=== PATIENT | female | born 1995 | race African-American/Black ===

== ENCOUNTER 2017-05-22 09:34 | Emergency (ER) | payer MEDICAID, OTHER ==
[~2017-05-22] VITALS: Ht 165.1 cm; Wt 60.0 kg
[~2017-05-22 09:34] MED LIST: CHLO.12%30 SWISH-SPIT; PENI500T PO
[2017-05-22 09:37] VITALS: BP 113/70; PULSE 83; RESP 14; TEMP 97.6; O2SAT 99
[2017-05-22] MEDS ORDERED: SODIUM CHLOR 0.9% 1000 ML INJ 1,000 ML IV SCH (10:01)
[2017-05-22] MEDS ORDERED: SODIUM CHLORIDE 0.9% FLUSH 10 ML FLUSH IV FLUSH PRN (10:15)
[2017-05-22] MEDS ORDERED: ONDANSETRON HCL 4 MG/2 ML VIAL IVP ONE (10:15)
[2017-05-22] MEDS ORDERED: MORPHINE SULFATE 4 MG/ML INJ IV PUSH ONE (10:15)
[2017-05-22] MEDS ORDERED: KETOROLAC TROMETHAMINE 30 MG/ML (IVP) VIAL IVP ONE (10:15)
[2017-05-22] MEDS ORDERED: MORPHINE SULFATE 2 MG/ML INJ IV PUSH ONE (10:30)
--- NOTE | 2017-05-22 10:59 | PD ---
HPI Chief Complaint: Abdominal Pain Time Seen by Provider: 10:01 Travel History International Travel<30 days: No Contact w/Intl Traveler<30days: No Traveled to known affect area: No History of Present Illness HPI This is a 21-year-old female who presents to the emergency department with right lower quadrant abdominal pain that started overnight, keeping her from sleeping, sharp and stabbing, nonradiating, associated with some nausea. She denies any fevers, chills or vomiting. She has had kidney stones in the past but they usually hurt her in her back. She doesn't know if she could be . [facility] Past Medical History Medical History: Denies Significant Hx Diminished Hearing: No Kidney Stones: Yes Immunizations Current: Yes Tetanus Vaccination: < 5 Years Influenza Vaccination: No ?: Unknown LMP: 04/28/17 : 3 Para: 3 Past Surgical History Section: No Genitourinary Surgery: Yes (STENT AND THEN REMOVAL; R/T KIDNEY STONES) Social History Alcohol Use: No Tobacco Use: Yes (3 cig/daily) Substance Use: Yes Allergies-Medications (Allergen,Severity, Reaction): Coded Allergies: No Known Allergies (Verified , 06/22/16) Reported Meds & Prescriptions Reported Meds & Active Scripts Active Pen Vk (Penicillin V Potassium) 500 Mg Tab 500 Mg PO TID 10 Days Peridex Oral Rinse (Chlorhexidine Gluconate) 0.12 % Marichuy 15 Ml SWISH-SPIT TID 10 Days Review of Systems Except as stated in HPI: all other systems reviewed are Neg Physical Exam Narrative GENERAL:Well appearing, no acute distress SKIN: Focused skin assessment warm and dry. HEAD: Atraumatic. Normocephalic. EYES: Pupils equal and round. No injection or drainage. ENT: Moist mucous membranes NECK: Trachea midline. CARDIOVASCULAR: Regular rate and rhythm. No murmur appreciated. RESPIRATORY: Clear to auscultation. Breath sounds equal bilaterally. GASTROINTESTINAL: Abdomen soft, tender to palpation in the right lower quadrant with no rebound or guarding. MUSCULOSKELETAL: No obvious deformities. NEUROLOGICAL: Awake and alert. No obvious cranial nerve deficits. Moving all extremities. PSYCHIATRIC: Appropriate mood and affect; insight and judgment normal. Data Data Last Documented VS Vital Signs Date Time Temp Pulse Resp B/P (MAP) Pulse Ox O2 Delivery O2 Flow Rate FiO2 05/22/17 11:39 64 16 106/63 (77) 99 Room Air 05/22/17 09:37 97.6 Orders Orders Complete Blood Count With Diff (05/22/17 10:01) Comprehensive Metabolic Panel (05/22/17 10:01) Urinalysis - C+S If Indicated (05/22/17 10:01) Ct Abd/Pel W/O Iv Contrast (05/22/17 10:01) Iv Access Insert/Monitor (05/22/17 10:01) Ecg Monitoring (05/22/17 10:01) Oximetry (05/22/17 10:01) Morphine Inj (Morphine Inj) (05/22/17 10:15) Ondansetron Inj (Zofran Inj) (05/22/17 10:15) Sodium Chlor 0.9% 1000 Ml Inj (Ns 1000 M (05/22/17 10:01) Sodium Chloride 0.9% Flush (Ns Flush) (05/22/17 10:15) Ketorolac Inj (Toradol Inj) (05/22/17 10:15) Ed Urine Pregnancytest Poc (05/22/17 10:01) Morphine Inj (Morphine Inj) (05/22/17 10:30) Wet Prep Profile (05/22/17 11:51) Gc And Chlamydia Pcr (05/22/17 11:51) Labs Laboratory Tests Test 05/22/17 10:15 05/22/17 10:20 Urine Color LIGHT-YELLOW Urine Turbidity HAZY Urine pH 7.0 Urine Specific [place] 1.019 Urine Protein NEG mg/dL Urine Glucose (UA) NEG mg/dL Urine Ketones NEG mg/dL Urine Occult Blood NEG Urine Nitrite NEG Urine Bilirubin NEG Urine Urobilinogen LESS THAN 2.0 MG/DL Urine Leukocyte Esterase NEG Urine WBC 4 /hpf Urine Squamous Epithelial Cells 4 /hpf Urine Amorphous Sediment RARE Urine Bacteria FEW /hpf Urine Mucus FEW /lpf Microscopic Urinalysis Comment CULT NOT INDICATED White Blood Count 4.2 TH/MM3 Red Blood Count 3.91 MIL/MM3 Hemoglobin 12.2 GM/DL Hematocrit 36.7 % Mean Corpuscular Volume 93.8 FL Mean Corpuscular Hemoglobin 31.2 PG Mean Corpuscular Hemoglobin Concent 33.3 % Red Cell Distribution Width 14.1 % Platelet Count 230 TH/MM3 Mean Platelet Volume 8.1 FL Neutrophils (%) (Auto) 48.6 % Lymphocytes (%) (Auto) 41.5 % Monocytes (%) (Auto) 8.7 % Eosinophils (%) (Auto) 0.7 % Basophils (%) (Auto) 0.5 % Neutrophils # (Auto) 2.0 TH/MM3 Lymphocytes # (Auto) 1.7 TH/MM3 Monocytes # (Auto) 0.4 TH/MM3 Eosinophils # (Auto) 0.0 TH/MM3 Basophils # (Auto) 0.0 TH/MM3 CBC Comment DIFF FINAL Differential Comment Blood Urea Nitrogen 12 MG/DL Creatinine 0.78 MG/DL Random Glucose 88 MG/DL Total Protein 8.1 GM/DL Albumin 4.2 GM/DL Calcium Level 9.5 MG/DL Alkaline Phosphatase 84 U/L Aspartate Amino Transf (AST/SGOT) 15 U/L Alanine Aminotransferase (ALT/SGPT) 19 U/L Total Bilirubin 0.2 MG/DL Sodium Level 137 MEQ/L Potassium Level 4.2 MEQ/L Chloride Level 104 MEQ/L Carbon Dioxide Level 26.3 MEQ/L Anion Gap 7 MEQ/L Estimat Glomerular Filtration Rate 112 ML/MIN MDM Medical Decision Making Medical Screen Exam Complete: Yes Emergency Medical Condition: Yes Interpretation(s) afebrile, no tachycardia, normotensive no leukocytosis electrolytes within normal limits urinalysis: no infection Differential Diagnosis Nephrolithiasis, tubo-ovarian abscess, ovarian torsion, ovarian cyst, PID Narrative Course This is a 21-year-old female who presents to the emergency department with right lower quadrant abdominal pain and vaginal discharge and a foul odor. His CT was obtained given the patient's history kidney stones which was normal. Labs are obtained which were reassuring. Pelvic exam demonstrates PID. I think patient is appropriate for outpatient antibiotic therapy. Diagnosis Primary Impression: Pelvic inflammatory disease Patient Instructions: General Instructions Additional Instructions: If you develop fever, chills, severe abdominal pain, persistent vomiting or inability to eat return to the emergency department. Your pelvic exam today did not include a Pap smear. It is important to followup with a kitchen worker on a yearly basis to be tested for cervical cancer as we do not do that from the emergency department. If there is a concern that you have sexually transmitted disease, your partner should be tested. You should followup with your kitchen worker or with the health department to get tested for other sexually transmitted diseases like HIV and syphilis, as we do not test for these in the emergency department Med/Other Pt SpecificInfo: Prescription(s) given Scripts Doxycycline Hyclate (Doxycycline Hyclate) 100 Mg Cap 100 MG PO BID for Infection, #28 CAP 0 Refills Prov: Kathy Ramirez MD 05/22/17 Disposition: 01 DISCHARGE HOME Condition: Stable Kathy Ramirez MD May 22, 2017 10:59
[2017-05-22 11:30] LABS: BASOPHIL % 0.5 % (0.0-2.0); EOSINOPHIL % 0.7 % (0.0-4.0); HEMATOCRIT 36.7 % (35.0-46.0); HEMO FLAGS DIFF FINAL; LYMPH % 41.5 % (9.0-44.0); LYMPHOCYTE # 1.7 TH/MM3 (1.0-4.8); MEAN CELL VOLUME 93.8 FL (80.0-100.0); MEAN CORPUSCULAR HEMOGLOBIN 31.2 PG (27.0-34.0); MEAN CORPUSCULAR HGB CONC 33.3 % (32.0-36.0); MONO % 8.7 % (0.0-8.0); NEUT % 48.6 % (16.0-70.0); PLATELET COUNT 230 TH/MM3 (150-450); RED BLOOD COUNT 3.91 MIL/MM3 (4.00-5.30); RED CELL DISTRIBUTION WIDTH 14.1 % (11.6-17.2); WHITE BLOOD COUNT 4.2 TH/MM3 (4.0-11.0)
[2017-05-22 11:38] LABS: BACTERIA, URINE FEW /hpf; BLOOD, URINE NEG (NEG); COMMENT (UR) CULT NOT INDICATED; CULTURE IF INDICATED CULT NOT INDICATED; GLUCOSE,URINE NEG (NEG); KETONE, URINE NEG (NEG); MUCUS URINE FEW /lpf (OCC); NITRITE,URINE NEG (NEG); SQUAMOUS EPITHELIAL CELL URINE 4 /hpf (0-5); URINE COLOR LIGHT-YELLOW (YELLW/STRAW)
[2017-05-22 11:39] VITALS: BP 106/63; PULSE 64; RESP 16; O2SAT 99
--- NOTE | 2017-05-22 11:40 | RADRPT ---
EXAM DATE/TIME: 05/22/2017 11:18 [facility] COMPARISON: No previous studies available for comparison. INDICATIONS : Right flank pain, lower abdominal pain. ORAL CONTRAST: No oral contrast ingested. RADIATION DOSE: 6.12 CTDIvol (mGy) MEDICAL HISTORY : Renal calculi. SURGICAL HISTORY : Renal stent. ENCOUNTER: Initial ACUITY: 1 day PAIN SCALE: 6/10 LOCATION: Right flank TECHNIQUE: Volumetric scanning of the abdomen and pelvis was performed. Using automated exposure control and ad justment of the mA and/or kV according to patient size, radiation dose was kept as low as reasonably achievable to obtain optimal diagnostic quality images. DICOM format image data is available electro nically for review and comparison. The lack of IV contrast limits the diagnosis for certain organ pa thology. FINDINGS: LOWER LUNGS: The visualized lower lungs are clear. LIVER: Homogeneous density without lesion. There is no dilation of the biliary tree. No calcified gallston es. SPLEEN: Normal size without lesion. PANCREAS: Within normal limits. KIDNEYS: Normal in size and shape. There is no mass or hydronephrosis. There is a 3 mm stone mid to lower cameron e right kidney not causing obstruction. There is a 2 mm stone in the lower pole and midpole right kid lissa not causing obstruction. There is a 3 mm stone in the upper pole and lower pole of the left kidne y not causing obstruction. The ureters are nondilated. ADRENAL GLANDS: Within normal limits. VASCULAR: There is no aortic aneurysm. BOWEL/MESENTERY: The stomach, small bowel, and colon demonstrate no acute abnormality. There is no free intraperitone al air or fluid. ABDOMINAL WALL: Within normal limits. RETROPERITONEUM: There is no lymphadenopathy. BLADDER: No wall thickening or mass. No stones. REPRODUCTIVE: Within normal limits. INGUINAL: There is no lymphadenopathy or hernia. MUSCULOSKELETAL: Within normal limits for patient age. CONCLUSION: 1. No evidence of hydronephrosis. 2. There is several tiny subcentimeter bilateral renal calculi not causing obstruction. Lacho Gonzalez MD on May 22, 2017 at 11:35 Board Certified Radiologist. This report was verified electronically.
[2017-05-22 11:45] LABS: ANION GAP 7 MEQ/L (5-15); AST (GOT) 15 U/L (15-37); BICARBONATE 26.3 MEQ/L (21.0-32.0); BLOOD UREA NITROGEN 12 MG/DL (7-18); CHLORIDE 104 MEQ/L (98-107); GLOMERULAR FILTRATION RATE 112 ML/MIN (>89); POTASSIUM 4.2 MEQ/L (3.5-5.1); SODIUM (NA) 137 MEQ/L (136-145)
[2017-05-22 11:47] LABS: ALT (GPT) 19 U/L (10-53)
[2017-05-22 11:49] LABS: ALKALINE PHOSPHATASE 84 U/L (45-117); TOTAL BILIRUBIN ADULT 0.2 MG/DL (0.2-1.0)
[2017-05-22] MEDS ORDERED: DOXY100C PO (12:06)
[2017-05-22] MEDS ORDERED: LIDOCAINE HCL 1% 50 ML VIAL IM ONE (12:15)
[2017-05-22] MEDS ORDERED: metroNIDAZOLE 500 MG TAB PO ONE (12:15)
[2017-05-22] MEDS ORDERED: cefTRIAXone 250 MG VIAL IM ONE (12:15)
[2017-05-22 14:26] LABS: CHLAMYDIA PCR NOT DETECTED (NOT DETECT); NEISSERIA PCR NOT DETECTED (NOT DETECT)
== END 2017-05-22 12:47 | disposition home or self-care (01) ==
LOC: NEPD 09:34
DX: N73.9 Female pelvic inflammatory disease, unspecified (principal); R10.31 Right lower quadrant pain; R11.0 Nausea; Z72.0 Tobacco use
CPT/HCPCS: 74176; 80053; 81001; 84703; 85025; 87210; 87491; 87591; 96361; 96372; 96374; 96375; 99285; J0696; J1885; J2270; J2405; J7030

== ENCOUNTER 2017-05-30 09:20 | Emergency (ER) | payer OTHER ==
[~2017-05-30] VITALS: Ht 165.1 cm; Wt 55.0 kg
[~2017-05-30 09:20] MED LIST changes: +DOXY100C PO
[2017-05-30] MEDS ORDERED: SODIUM CHLOR 0.9% 1000 ML INJ 1,000 ML IV SCH (09:31)
[2017-05-30 09:33] VITALS: BP 101/55; PULSE 65; RESP 16; TEMP 98.9; O2SAT 99
[2017-05-30 09:37] VITALS: O2SAT 99
[2017-05-30] MEDS ORDERED: SODIUM CHLORIDE 0.9% FLUSH 10 ML FLUSH IV FLUSH PRN (09:45)
[2017-05-30] MEDS ORDERED: ONDANSETRON HCL 4 MG/2 ML VIAL IVP ONE (09:45)
[2017-05-30] MEDS ORDERED: KETOROLAC TROMETHAMINE 30 MG/ML (IVP) VIAL IVP ONE (09:45)
--- NOTE | 2017-05-30 09:46 | PD ---
HPI Chief Complaint: Abdominal Pain Time Seen by Provider: 09:29 Travel History International Travel<30 days: No Contact w/Intl Traveler<30days: No Traveled to known affect area: No History of Present Illness HPI 21-year-old female complains of low abdominal pain and low back pain. Patient states that she started having nausea vomiting is morning. Patient states that she started having severe low back pain after and episode of vomiting this morning. Patient states that the back pain abdominal pain much better now. Patient denies any headache. Patient denies any chest pain or shortness of breath. Patient denies any dysuria or frequency. Patient denies any vaginal discharge or bleeding. Patient denies any fever chills. Patient was seen in emergency room a week ago for abdominal pain. Patient was treated for PID. Patient was given prescription for doxycycline. Subsequent lab results shows negative for chlamydia or GC PCR. Patient states that the abdominal pain resolved completely after the visit. Patient states that she has history kidney stone in the past. PFSH Past Medical History Diminished Hearing: No Kidney Stones: Yes Immunizations Current: Yes ?: Not : 3 Para: 3 Past Surgical History Section: No Genitourinary Surgery: Yes (STENT AND THEN REMOVAL; R/T KIDNEY STONES) Social History Alcohol Use: No Tobacco Use: Yes (3 cig/daily) Substance Use: Yes Allergies-Medications (Allergen,Severity, Reaction): Coded Allergies: No Known Allergies (Verified , 05/30/17) Reported Meds & Prescriptions Reported Meds & Active Scripts Active Review of Systems General / Constitutional: No: Fever Eyes: No: Visual changes HENT: No: Headaches Cardiovascular: No: Chest Pain or Discomfort Respiratory: No: Shortness of Breath Gastrointestinal: Positive: Nausea, Vomiting, Abdominal Pain Genitourinary: No: Dysuria Musculoskeletal: No: Pain Skin: No Rash Neurologic: No: Weakness Psychiatric: No: Depression Endocrine: No: Polydipsia Hematologic/Lymphatic: No: Easy Bruising Physical Exam Narrative GENERAL: Well-nourished, well-developed patient. SKIN: Focused skin assessment warm/dry. HEAD: Normocephalic. EYES: No scleral icterus. No injection or drainage. NECK: Supple, trachea midline. No JVD or lymphadenopathy. CARDIOVASCULAR: Regular rate and rhythm without murmurs, gallops, or rubs. RESPIRATORY: Breath sounds equal bilaterally. No accessory muscle use. GASTROINTESTINAL: Abdomen soft, nondistended. Mild diffuse tenderness over the lower abdomen. No rebound tenderness. No mass. MUSCULOSKELETAL: No cyanosis, or edema. BACK: Mild tenderness on the lumbar area, without obvious deformity. No CVA tenderness. Neurologic exam normal. Data Data Last Documented VS Vital Signs Date Time Temp Pulse Resp B/P (MAP) Pulse Ox O2 Delivery O2 Flow Rate FiO2 05/30/17 09:37 99 05/30/17 09:33 98.9 65 16 101/55 (70) Orders Orders Complete Blood Count With Diff (05/30/17 09:31) Comprehensive Metabolic Panel (05/30/17 09:31) Lipase (05/30/17 09:31) Urinalysis - C+S If Indicated (05/30/17:31) Ct Abd/Pel W/O Iv Contrast (05/30/17 09:31) Iv Access Insert/Monitor (05/30/17 09:31) Ecg Monitoring (05/30/17:31) Oximetry (05/30/17:31) Ondansetron Inj (Zofran Inj) (05/30/17 09:45) Sodium Chlor 0.9% 1000 Ml Inj (Ns 1000 M (05/30/17 09:31) Sodium Chloride 0.9% Flush (Ns Flush) (05/30/17 09:45) Ketorolac Inj (Toradol Inj) (05/30/17 09:45) Ed Urine Pregnancytest Poc (05/30/17 09:31) Labs Laboratory Tests Test 05/30/17 09:40 White Blood Count 4.8 TH/MM3 Red Blood Count 3.70 MIL/MM3 Hemoglobin 11.6 GM/DL Hematocrit 35.3 % Mean Corpuscular Volume 95.3 FL Mean Corpuscular Hemoglobin 31.4 PG Mean Corpuscular Hemoglobin Concent 32.9 % Red Cell Distribution Width 14.4 % Platelet Count 186 TH/MM3 Mean Platelet Volume 8.0 FL Neutrophils (%) (Auto) 42.2 % Lymphocytes (%) (Auto) 47.7 % Monocytes (%) (Auto) 7.7 % Eosinophils (%) (Auto) 2.1 % Basophils (%) (Auto) 0.3 % Neutrophils # (Auto) 2.0 TH/MM3 Lymphocytes # (Auto) 2.3 TH/MM3 Monocytes # (Auto) 0.4 TH/MM3 Eosinophils # (Auto) 0.1 TH/MM3 Basophils # (Auto) 0.0 TH/MM3 CBC Comment DIFF FINAL Differential Comment Urine Color YELLOW Urine Turbidity HAZY Urine pH 6.5 Urine Specific [place] 1.022 Urine Protein TRACE mg/dL Urine Glucose (UA) NEG mg/dL Urine Ketones NEG mg/dL Urine Occult Blood MOD Urine Nitrite NEG Urine Bilirubin NEG Urine Urobilinogen LESS THAN 2.0 MG/DL Urine Leukocyte Esterase TRACE Urine RBC 69 /hpf Urine WBC 8 /hpf Urine Squamous Epithelial Cells 3 /hpf Urine Calcium Oxalate Crystals OCC /hpf Urine Mucus FEW /lpf Microscopic Urinalysis Comment CULT NOT INDICATED Blood Urea Nitrogen 10 MG/DL Creatinine 0.81 MG/DL Random Glucose 110 MG/DL Total Protein 7.2 GM/DL Albumin 3.6 GM/DL Calcium Level 9.0 MG/DL Alkaline Phosphatase 74 U/L Aspartate Amino Transf (AST/SGOT) 25 U/L Alanine Aminotransferase (ALT/SGPT) 22 U/L Total Bilirubin LESS THAN 0.1 MG/DL Sodium Level 136 MEQ/L Potassium Level 3.6 MEQ/L Chloride Level 107 MEQ/L Carbon Dioxide Level 21.1 MEQ/L Anion Gap 8 MEQ/L Estimat Glomerular Filtration Rate 107 ML/MIN Lipase 268 U/L MDM Medical Decision Making Medical Screen Exam Complete: Yes Emergency Medical Condition: Yes Medical Record Reviewed: Yes Interpretation(s) 10:29 AM. CBC within normal limit. CMP within normal limit. UA positive for WBC and RBC. 11:24 AM. Last Impressions Abdomen/Pelvis CT 05/30/17 0931 Signed Impressions: Service Date/Time: Tuesday, May 30, 2017 10:27 - CONCLUSION: Stable small bilateral renal stones. No evidence of hydronephrosis. No acute findings. Matt Vasquez MD Differential Diagnosis Differential diagnosis including gastroenteritis, gastritis, PUD, pancreatitis, cholecystitis, colitis, UTI, pyelonephritis, nephrolithiasis. Narrative Course 21-year-old female with low abdominal pain and low back pain and nausea vomiting. Normal saline solution 1 25 cc an hour. Toradol 30 mg IV. Zofran 4 mg IV. Diagnosis Primary Impression: Gastroenteritis Additional Impression: Lumbar strain Qualified Codes: S39.012A - Strain of muscle, fascia and tendon of lower back , initial encounter Patient Instructions: General Instructions Additional Instructions: Take medications as directed. Follow-up with personal physician. Return if worse. Med/Other Pt SpecificInfo: Prescription(s) given Scripts Methocarbamol (Robaxin) 750 Mg Tab 750 MG PO QID for Pain, #40 TAB 0 Refills Prov: Garcia Rothman MD 05/30/17 Meloxicam (Mobic) 15 Mg Tab 15 MG PO DAILY for Pain, #20 TAB 0 Refills Prov: Garcia Rothman MD 05/30/17 Disposition: 01 DISCHARGE HOME Condition: Stable Garcia Rothman MD May 30, 2017 09:46
[2017-05-30 09:57] LABS: BASOPHIL % 0.3 % (0.0-2.0); EOSINOPHIL # 0.1 TH/MM3 (0-0.4); EOSINOPHIL % 2.1 % (0.0-4.0); HEMATOCRIT 35.3 % (35.0-46.0); HEMOGLOBIN 11.6 GM/DL (11.6-15.3); LYMPH % 47.7 % (9.0-44.0); LYMPHOCYTE # 2.3 TH/MM3 (1.0-4.8); MEAN CELL VOLUME 95.3 FL (80.0-100.0); MEAN CORPUSCULAR HEMOGLOBIN 31.4 PG (27.0-34.0); MEAN CORPUSCULAR HGB CONC 32.9 % (32.0-36.0); MONO % 7.7 % (0.0-8.0); MONOCYTE # 0.4 TH/MM3 (0-0.9); NEUT % 42.2 % (16.0-70.0); PLATELET COUNT 186 TH/MM3 (150-450); RED CELL DISTRIBUTION WIDTH 14.4 % (11.6-17.2); WHITE BLOOD COUNT 4.8 TH/MM3 (4.0-11.0)
[2017-05-30 10:17] LABS: ALT (GPT) 22 U/L (10-53)
[2017-05-30 10:20] LABS: ALKALINE PHOSPHATASE 74 U/L (45-117); TOTAL BILIRUBIN ADULT LESS THAN 0.1 MG/DL (0.2-1.0); TOTAL PROTEIN 7.2 GM/DL (6.4-8.2)
[2017-05-30 10:22] LABS: ALBUMIN 3.6 GM/DL (3.4-5.0); AST (GOT) 25 U/L (15-37); BICARBONATE 21.1 MEQ/L (21.0-32.0); BLOOD UREA NITROGEN 10 MG/DL (7-18); CHLORIDE 107 MEQ/L (98-107); CREATININE 0.81 MG/DL (0.50-1.00); GLOMERULAR FILTRATION RATE 107 ML/MIN (>89); GLUCOSE,RANDOM 110 MG/DL (74-106); LIPASE 268 U/L (73-393); SODIUM (NA) 136 MEQ/L (136-145)
[2017-05-30 10:23] LABS: BILIRUBIN, URINE NEG (NEG); BLOOD, URINE MOD (NEG); CALCIUM OXALATE CRYSTALS,URINE OCC /hpf; GLUCOSE,URINE NEG (NEG); KETONE, URINE NEG (NEG); MUCUS URINE FEW /lpf (OCC); NITRITE,URINE NEG (NEG); PH, URINE 6.5 (5.0-8.5); SQUAMOUS EPITHELIAL CELL URINE 3 /hpf (0-5); URINE COLOR YELLOW (YELLW/STRAW); URINE LEUKOCYTE ESTERASE TRACE (NEG)
--- NOTE | 2017-05-30 11:14 | RADRPT ---
EXAM DATE/TIME: 05/30/2017 10:27 [facility] COMPARISON: CT ABDOMEN & PELVIS W/O CONTRAST, May 22, 2017, 11:18. INDICATIONS : Right sided abdominal pain. ORAL CONTRAST: No oral contrast ingested. RADIATION DOSE: 6.91 CTDIvol (mGy) MEDICAL HISTORY : Renal calculi. SURGICAL HISTORY : None. ENCOUNTER: Initial ACUITY: 1 day PAIN SCALE: 5/10 LOCATION: Right flank TECHNIQUE: Volumetric scanning of the abdomen and pelvis was performed. Using automated exposure control and ad justment of the mA and/or kV according to patient size, radiation dose was kept as low as reasonably achievable to obtain optimal diagnostic quality images. DICOM format image data is available electro nically for review and comparison. FINDINGS: LOWER LUNGS: The visualized lower lungs are clear. LIVER: Homogeneous density without lesion for noncontrast technique. There is no dilation of the biliary tr ee. No calcified gallstones. SPLEEN: Normal size without lesion. PANCREAS: Within normal limits. KIDNEYS: There multiple tiny nonobstructing stones in the collecting system of both kidneys, these measure 4 m m or less, at least 2 on the right side and 4 on the left. These have similar features in appearance with compared to prior CT scan 8 days ago. No evidence of hydronephrosis. No calcifications along the course of either ureter. ADRENAL GLANDS: Within normal limits. VASCULAR: There is no aortic aneurysm. BOWEL/MESENTERY: No dilated loops of small or large bowel. ABDOMINAL WALL: Within normal limits. RETROPERITONEUM: There is no lymphadenopathy. BLADDER: No wall thickening or mass. REPRODUCTIVE: Anteverted uterus. No evidence of free fluid. INGUINAL: There is no lymphadenopathy or hernia. MUSCULOSKELETAL: Within normal limits for patient age. CONCLUSION: Stable small bilateral renal stones. No evidence of hydronephrosis. No acute findings. Matt Vasquez MD on May 30, 2017 at 11:07 Board Certified Radiologist. This report was verified electronically.
[2017-05-30] MEDS ORDERED: ROBA750T PO (11:29)
[2017-05-30] MEDS ORDERED: MOBI15TA PO (11:29)
== END 2017-05-30 11:46 | disposition home or self-care (01) ==
LOC: NEPD 09:20
DX: K52.9 Noninfective gastroenteritis and colitis, unspecified (principal); S39.012A Strain of muscle, fascia and tendon of lower back, initial encounter; X58.XXXA Exposure to other specified factors, initial encounter; Z87.442 Personal history of urinary calculi; F17.210 Nicotine dependence, cigarettes, uncomplicated
CPT/HCPCS: 74176; 80053; 81001; 83690; 84703; 85025; 96374; 96375; 99285; J1885; J2405; J7030

== ENCOUNTER 2017-08-04 16:38 | Emergency (ER) | payer OTHER ==
[~2017-08-04] VITALS: Ht 165.1 cm; Wt 55.0 kg
[~2017-08-04 16:38] MED LIST changes: -CHLO.12%30 SWISH-SPIT; -DOXY100C PO; +MOBI15TA PO; -PENI500T PO; +ROBA750T PO
[2017-08-04 16:40] VITALS: BP 116/58; PULSE 76; RESP 18; TEMP 97.9; O2SAT 99
[2017-08-04] MEDS ORDERED: NYSTAT/DIPHENHY/LIDO MOUTHWASH (Adult) 120ML SWISH-SPIT ONE (17:00)
[2017-08-04] MEDS ORDERED: KETOROLAC TROMETHAMINE 60 MG/2 ML (IM) VIAL IM ONE (17:00)
[2017-08-04] MEDS ORDERED: PENICILLIN V POTASSIUM 500 MG TAB PO ONE (17:00)
--- NOTE | 2017-08-04 17:02 | PD ---
HPI Chief Complaint: Oral / Dental Pain or Problem Time Seen by Provider: 16:54 Travel History International Travel<30 days: No Contact w/Intl Traveler<30days: No Traveled to known affect area: No History of Present Illness HPI 21-year-old Afro-[place] female presents the emergency Department with sudden onset left lower jaw and dental pain. Patient states she developed dental pain for 2 days ago last evening the left lower second molar completely fell out while eating. She now has severe pain in the socket left from the tooth. She has mild swelling at the gingiva and left lower jaw. She has no difficulty swallowing. She denies fever or chills. She denies trauma to the area. Pain is 10 out of 10. She has no known drug allergies. PFSH Past Medical History Diminished Hearing: No Kidney Stones: Yes Immunizations Current: Yes ?: Not LMP: 07/29/17 : 3 Para: 3 Past Surgical History Section: No Genitourinary Surgery: Yes (STENT AND THEN REMOVAL; R/T KIDNEY STONES) Social History Alcohol Use: No Tobacco Use: Yes (3 cig/daily) Substance Use: Yes Allergies-Medications (Allergen,Severity, Reaction): Coded Allergies: No Known Allergies (Verified Adverse Reaction, Unknown, 08/04/17) Reported Meds & Prescriptions Reported Meds & Active Scripts Active Magic Mouthwash Adult Liq (Multi-Ingredient Mouthwash/Gargle) 120 Ml Susp 10 Ml SWISH-SPIT Q2HR Each 5mL contains: Nystatin 200,000units, Diphenhydramine 4.25mg, Viscous Lidocaine 10mg, Awan syrup 0.8 mL Mapap Extra Strength (Acetaminophen) 500 Mg Tab 1,000 Mg PO Q4-6H PRN Ibuprofen 600 Mg Tab 600 Mg PO Q6H PRN Penicillin V Potassium 500 Mg Tab 500 Mg PO Q6H Robaxin (Methocarbamol) 750 Mg Tab 750 Mg PO QID Mobic (Meloxicam) 15 Mg Tab 15 Mg PO DAILY Review of Systems Except as stated in HPI: all other systems reviewed are Neg General / Constitutional: No: Fever Eyes: No: Visual changes HENT: Positive: Dental Difficulties, No: Headaches, Vertigo, Lightheadedness, Sore Throat, Rhinitis, Rhinorrhea, Congestion, Nosebleed, Neck Stiffness, Neck Pain, Gingival Bleeding, Ear Discharge, Earache Cardiovascular: No: Chest Pain or Discomfort Respiratory: No: Shortness of Breath Gastrointestinal: No: Abdominal Pain Genitourinary: No: Dysuria Musculoskeletal: No: Pain Skin: No Rash Neurologic: No: Weakness Psychiatric: No: Depression Endocrine: No: Polydipsia Hematologic/Lymphatic: No: Easy Bruising Physical Exam Narrative GENERAL: Patient is in moderate distress. SKIN: Warm and dry. Normal color. Normal turgor. No rash. HEAD: Atraumatic. Normocephalic. Patient is tenderness to palpation of the left lower jaw with mild swelling noted. Patient is obvious trismus on the left. EYES: Pupils equal and round. No scleral icterus. No injection or drainage. ENT: No nasal bleeding or discharge. Mucous membranes pink and moist. Patient' s teeth actually look fairly good condition. There is an open socket where the second left lower premolar was. This area is very tender and locally swollen. There is no sign of significant abscess. TMs are clear. No Jose G's angina noted. Pharynx is clear and airway is patent. NECK: Trachea midline. Supple nontender without lymphadenopathy. CARDIOVASCULAR: Regular rate and rhythm. RESPIRATORY: No accessory muscle use. Clear to auscultation. Breath sounds equal bilaterally. MUSCULOSKELETAL: Extremities without clubbing, cyanosis, or edema. No obvious deformities. NEUROLOGICAL: Awake and alert. No obvious cranial nerve deficits. Motor grossly within normal limits. Five out of 5 muscle strength in the arms and legs. Normal speech. PSYCHIATRIC: Appropriate mood and affect; insight and judgment normal. Data Data Last Documented VS Vital Signs Date Time Temp Pulse Resp B/P (MAP) Pulse Ox O2 Delivery O2 Flow Rate FiO2 08/04/17 16:40 97.9 76 18 116/58 (77) 99 Room Air Orders Orders Ketorolac Inj (Toradol Inj) (08/04/17 17:00) Ednw-Juor-Ddzf Liq (Magic Mouthwash Adul (08/04/17 17:00) Penicillin V Potassium (Veetids) (08/04/17 17:00) Ed Discharge Order (08/04/17 17:04) [facility] Medical Decision Making Medical Screen Exam Complete: Yes Emergency Medical Condition: Yes Differential Diagnosis Dental pain. Dental abscess. Dry socket. Narrative Course Patient given Toradol 60 mg IM. Patient given Pen-Vee K 500 mg by mouth now. Patient given Magic mouthwash was spit 1. Patient will be continued on Pen-Vee K 500 mg 4 times a day #40. Patient continued on ibuprofen 600 mg 4 times daily with food #40. Patient given Mapap 500 mg 2 tabs every 6 hours #80. Patient given Magic mouthwash 5-10 mL every 2 hours when necessary dental pain. 120 mL with 1 refill. Patient is referred to dentist as soon as possible. Diagnosis Primary Impression: Pain, dental Additional Impression: Dry tooth socket Referrals: Dentist Patient Instructions: Dental Abscess (ED), Dry Socket (ED), General Instructions Additional Instructions: Patient given Toradol 60 mg IM. Patient given Pen-Vee K 500 mg by mouth now. Patient given Magic mouthwash was spit 1. Patient will be continued on Pen-Vee K 500 mg 4 times a day #40. Patient continued on ibuprofen 600 mg 4 times daily with food #40. Patient given Mapap 500 mg 2 tabs every 6 hours #80. Patient given Magic mouthwash 5-10 mL every 2 hours when necessary dental pain. 120 mL with 1 refill. Patient is referred to dentist as soon as possible. Med/Other Pt SpecificInfo: Prescription(s) given Scripts Hwmnsssk-Zbksefizedprzrt-Ezasjwrmu Liq (Magic Mouthwash Adult Liq) 120 Ml Susp 10 ML SWISH-SPIT Q2HR for Mouth sores, #120 ML 2 Refills Each 5mL contains: Nystatin 200,000units, Diphenhydramine 4.25mg, Viscous Lidocaine 10mg, Awan syrup 0.8 mL Prov: Mirza Headley MD 08/04/17 Acetaminophen (Mapap Extra Strength) 500 Mg Tab 1000 MG PO Q4-6H Y for PAIN, #80 TAB 0 Refills Prov: Mirza Headley MD 08/04/17 Ibuprofen (Ibuprofen) 600 Mg Tab 600 MG PO Q6H Y for Pain/Inflammation, #40 TAB 0 Refills Prov: Mirza Headley MD 08/04/17 Penicillin V Potassium (Penicillin V Potassium) 500 Mg Tab 500 MG PO Q6H for Infection, #40 TAB 0 Refills Prov: Mirza Headley MD 08/04/17 Disposition: 01 DISCHARGE HOME Condition: Stable Mary Ann,Aneesh F. PA Aug 04, 2017 17:01
[2017-08-04] MEDS ORDERED: IBUP-232 PO (17:03)
[2017-08-04] MEDS ORDERED: PENI500T PO (17:03)
[2017-08-04] MEDS ORDERED: MAPA500T13 PO (17:03)
[2017-08-04] MEDS ORDERED: MAGICADU2 SWISH-SPIT (17:03)
== END 2017-08-04 17:47 | disposition home or self-care (01) ==
LOC: NEPK 16:38
DX: M27.3 Alveolitis of jaws (principal); F17.210 Nicotine dependence, cigarettes, uncomplicated
CPT/HCPCS: 96372; 99284; J1885

== ENCOUNTER 2017-11-14 02:18 | Emergency (ER) | payer OTHER ==
[~2017-11-14] VITALS: Ht 165.1 cm; Wt 56.8 kg
[~2017-11-14 02:18] MED LIST changes: +IBUP-232 PO; +MAGICADU2 SWISH-SPIT; +MAPA500T13 PO; +PENI500T PO
[2017-11-14] MEDS ORDERED: SODIUM CHLORIDE 0.9% FLUSH 10 ML FLUSH IV FLUSH PRN (03:00)
[2017-11-14] MEDS ORDERED: MORPHINE SULFATE 8 MG/ML INJ IV PUSH ONE (03:00)
[2017-11-14] MEDS ORDERED: KETOROLAC TROMETHAMINE 30 MG/ML (IVP) VIAL IVP ONE (03:00)
[2017-11-14] MEDS ORDERED: ONDANSETRON HCL 4 MG/2 ML VIAL IVP ONE (03:00)
--- NOTE | 2017-11-14 03:11 | PD ---
HPI Chief Complaint: Respiratory Symptoms Time Seen by Provider: 02:24 Travel History International Travel<30 days: No Contact w/Intl Traveler<30days: No Traveled to known affect area: No History of Present Illness HPI 22-year-old complains of abdominal pain flank pain. She states it feels like kidney stones. Symptoms started about 20-30 minutes prior to ER arrival. She denies hematuria. She reports chills. No fever. No vomiting. Onset sudden. She reports no position of comfort. PFSH Past Medical History Diminished Hearing: No Kidney Stones: Yes Immunizations Current: Yes ?: Not LMP: 11/14/17 : 3 Para: 3 Past Surgical History Section: No Genitourinary Surgery: Yes (STENT AND THEN REMOVAL; R/T KIDNEY STONES) Social History Alcohol Use: No Tobacco Use: Yes (3 cig/daily) Substance Use: Yes Allergies-Medications (Allergen,Severity, Reaction): Coded Allergies: No Known Allergies (Verified Adverse Reaction, Unknown, 08/04/17) Reported Meds & Prescriptions Reported Meds & Active Scripts Active Magic Mouthwash Adult Liq (Multi-Ingredient Mouthwash/Gargle) 120 Ml Susp 10 Ml SWISH-SPIT Q2HR Each 5mL contains: Nystatin 200,000units, Diphenhydramine 4.25mg, Viscous Lidocaine 10mg, Awan syrup 0.8 mL Mapap Extra Strength (Acetaminophen) 500 Mg Tab 1,000 Mg PO Q4-6H PRN Ibuprofen 600 Mg Tab 600 Mg PO Q6H PRN Penicillin V Potassium 500 Mg Tab 500 Mg PO Q6H Robaxin (Methocarbamol) 750 Mg Tab 750 Mg PO QID Mobic (Meloxicam) 15 Mg Tab 15 Mg PO DAILY Review of Systems Except as stated in HPI: all other systems reviewed are Neg General / Constitutional: No: Fever Physical Exam Narrative GENERAL: 22-year-old female mild to moderate distress secondary to pain SKIN: Warm and dry. HEAD: Atraumatic. Normocephalic. EYES: Pupils equal and round. No scleral icterus. No injection or drainage. ENT: No nasal bleeding or discharge. Mucous membranes pink and moist. NECK: Trachea midline. No JVD. CARDIOVASCULAR: Regular rate and rhythm. RESPIRATORY: No accessory muscle use. Clear to auscultation. Breath sounds equal bilaterally. GASTROINTESTINAL: Minimal tenderness to percussion along the flanks bilaterally.. MUSCULOSKELETAL: Extremities without clubbing, cyanosis, or edema. No obvious deformities. NEUROLOGICAL: Awake and alert. No obvious cranial nerve deficits. Motor grossly within normal limits. Five out of 5 muscle strength in the arms and legs. Normal speech. PSYCHIATRIC: Appropriate mood and affect; insight and judgment normal. Data Data Orders Orders Complete Blood Count With Diff (11/14/17 02:54) Comprehensive Metabolic Panel (11/14/17 02:54) Lipase (11/14/17 02:54) Urinalysis - C+S If Indicated (11/14/17 02:54) Ct Abd/Pel W/O Iv Contrast (11/14/17 02:54) Iv Access Insert/Monitor (11/14/17 02:54) Ecg Monitoring (11/14/17 02:54) Oximetry (11/14/17 02:54) Ondansetron Inj (Zofran Inj) (11/14/17 03:00) Sodium Chloride 0.9% Flush (Ns Flush) (11/14/17 03:00) Ketorolac Inj (Toradol Inj) (11/14/17 03:00) Morphine Inj (Morphine Inj) (11/14/17 03:00) Ed Urine Pregnancytest Poc (11/14/17 02:54) Ed Discharge Order (11/14/17 04:57) Labs Laboratory Tests Test 11/14/17 02:58 11/14/17 04:00 White Blood Count 11.4 TH/MM3 Red Blood Count 3.84 MIL/MM3 Hemoglobin 12.1 GM/DL Hematocrit 36.7 % Mean Corpuscular Volume 95.6 FL Mean Corpuscular Hemoglobin 31.5 PG Mean Corpuscular Hemoglobin Concent 33.0 % Red Cell Distribution Width 15.2 % Platelet Count 341 TH/MM3 Mean Platelet Volume 8.2 FL Neutrophils (%) (Auto) 39.4 % Lymphocytes (%) (Auto) 52.2 % Monocytes (%) (Auto) 6.7 % Eosinophils (%) (Auto) 1.1 % Basophils (%) (Auto) 0.6 % Neutrophils # (Auto) 4.5 TH/MM3 Lymphocytes # (Auto) 5.9 TH/MM3 Monocytes # (Auto) 0.8 TH/MM3 Eosinophils # (Auto) 0.1 TH/MM3 Basophils # (Auto) 0.1 TH/MM3 CBC Comment AUTO DIFF Differential Total Cells Counted 100 Neutrophils % (Manual) 42 % Lymphocytes % 54 % Monocytes % 4 % Neutrophils # (Manual) 4.8 TH/MM3 Differential Comment FINAL DIFF MANUAL Platelet Estimate NORMAL Platelet Morphology Comment NORMAL Red Cell Morphology Comment NORMAL Blood Urea Nitrogen 12 MG/DL Creatinine 0.93 MG/DL Random Glucose 142 MG/DL Total Protein 7.4 GM/DL Albumin 3.7 GM/DL Calcium Level 9.1 MG/DL Alkaline Phosphatase 101 U/L Aspartate Amino Transf (AST/SGOT) 45 U/L Alanine Aminotransferase (ALT/SGPT) 40 U/L Total Bilirubin LESS THAN 0.1 MG/DL Sodium Level 140 MEQ/L Potassium Level 3.4 MEQ/L Chloride Level 105 MEQ/L Carbon Dioxide Level 24.9 MEQ/L Anion Gap 10 MEQ/L Estimat Glomerular Filtration Rate 90 ML/MIN Lipase 291 U/L Urine Color YELLOW Urine Turbidity HAZY Urine pH 7.0 Urine Specific [place] 1.016 Urine Protein NEG mg/dL Urine Glucose (UA) NEG mg/dL Urine Ketones NEG mg/dL Urine Occult Blood NEG Urine Nitrite NEG Urine Bilirubin NEG Urine Urobilinogen LESS THAN 2.0 MG/DL Urine Leukocyte Esterase NEG Urine RBC 1 /hpf Urine WBC 2 /hpf Urine Squamous Epithelial Cells <1 /hpf Urine Bacteria RARE /hpf Urine Mucus FEW /lpf Microscopic Urinalysis Comment CULT NOT INDICATED MDM Medical Decision Making Medical Screen Exam Complete: Yes Emergency Medical Condition: Yes Differential Diagnosis Constipation, Gastritis, Acute Cholecystitis, Biliary Colic, Pancreatitis, NAVARRO , Hepatitis, Bowel Obstruction, Cystitis, Mesenteric Ischemia, AAA, Appendicitis , Renal Stone/Hydronephrosis, GERD, perforated viscous Narrative Course CBC & BMP Diagram 11/14/17 02:58 Total Protein 7.4, Albumin 3.7, Calcium Level 9.1, Alkaline Phosphatase 101, Aspartate Amino Transf (AST/SGOT) 45 H, Alanine Aminotransferase (ALT/SGPT) 40, Total Bilirubin LESS THAN 0.1 L Last Impressions Abdomen/Pelvis CT 11/14/17 0254 Signed Impressions: Service Date/Time: Tuesday, November 14, 2017 04:12 - CONCLUSION: Tiny nonobstructing kidney stones bilaterally. No new or acute findings. Eric Stack MD The patient is resting comfortably and feels better, is alert and in no distress. The patients results and examination findings were discussed. The repeat examination is unremarkable and benign. The history, exam, diagnostic testing, and current condition do not suggest any significant pathology to warrant further testing, continued ED treatment, admission, or surgical evaluation at this point. The vital signs have been stable. The patient does not have uncontrollable pain, intractable vomiting, or other significant symptoms. The patient's condition is stable and appropriate for discharge. The patient will pursue further outpatient evaluation with a primary care physician or other designated or consulting physician as indicated in the discharge instructions. The patient expressed understanding and was agreeable with this plan. Diagnosis Primary Impression: Abdominal pain Qualified Codes: R10.9 - Unspecified abdominal pain Referrals: Primary Care Physician call for appointment Med/Other Pt SpecificInfo: No Change to Meds Disposition: 01 DISCHARGE HOME Condition: Stable Mirza Headley MD Nov 14, 2017 03:11
[2017-11-14 03:12] LABS: AUTOMATED NEUTROPHIL # 4.5 TH/MM3 (1.8-7.7); BASOPHIL # 0.1 TH/MM3 (0-0.2); BASOPHIL % 0.6 % (0.0-2.0); EOSINOPHIL # 0.1 TH/MM3 (0-0.4); EOSINOPHIL % 1.1 % (0.0-4.0); HEMATOCRIT 36.7 % (35.0-46.0); HEMOGLOBIN 12.1 GM/DL (11.6-15.3); LYMPH % 52.2 % (9.0-44.0); LYMPHOCYTE # 5.9 TH/MM3 (1.0-4.8); MEAN CELL VOLUME 95.6 FL (80.0-100.0); MEAN CORPUSCULAR HEMOGLOBIN 31.5 PG (27.0-34.0); MEAN PLATELET VOLUME 8.2 FL (7.0-11.0); MONO % 6.7 % (0.0-8.0); MONOCYTE # 0.8 TH/MM3 (0-0.9); NEUT % 39.4 % (16.0-70.0); PLATELET COUNT 341 TH/MM3 (150-450); RED BLOOD COUNT 3.84 MIL/MM3 (4.00-5.30); RED CELL DISTRIBUTION WIDTH 15.2 % (11.6-17.2); WHITE BLOOD COUNT 11.4 TH/MM3 (4.0-11.0)
[2017-11-14 03:31] LABS: ALKALINE PHOSPHATASE 101 U/L (45-117); TOTAL BILIRUBIN ADULT LESS THAN 0.1 MG/DL (0.2-1.0); TOTAL PROTEIN 7.4 GM/DL (6.4-8.2)
[2017-11-14 04:02] LABS: ALBUMIN 3.7 GM/DL (3.4-5.0); ALT (GPT) 40 U/L (10-53); AST (GOT) 45 U/L (15-37); BICARBONATE 24.9 MEQ/L (21.0-32.0); BLOOD UREA NITROGEN 12 MG/DL (7-18); CALCIUM 9.1 MG/DL (8.5-10.1); CHLORIDE 105 MEQ/L (98-107); CREATININE 0.93 MG/DL (0.50-1.00); GLOMERULAR FILTRATION RATE 90 ML/MIN (>89); GLUCOSE,RANDOM 142 MG/DL (74-106); LYMPHOCYTES 54 % (9-44); MONOCYTES 4 % (0-8); NEUTROPHIL # MANUAL DIFF 4.8 TH/MM3 (1.8-7.7); POLYS (SEG NEUTROPHILS) 42 % (16-70); SODIUM (NA) 140 MEQ/L (136-145)
[2017-11-14 04:20] LABS: BACTERIA, URINE RARE /hpf; BILIRUBIN, URINE NEG (NEG); BLOOD, URINE NEG (NEG); GLUCOSE,URINE NEG (NEG); KETONE, URINE NEG (NEG); MUCUS URINE FEW /lpf (OCC); NITRITE,URINE NEG (NEG); SQUAMOUS EPITHELIAL CELL URINE <1 /hpf (0-5); URINE COLOR YELLOW (YELLW/STRAW); URINE LEUKOCYTE ESTERASE NEG (NEG)
--- NOTE | 2017-11-14 04:47 | RADRPT ---
EXAM DATE/TIME: 11/14/2017 04:12 [facility] COMPARISON: CT ABDOMEN & PELVIS W/O CONTRAST, May 30, 2017, 10:27. INDICATIONS : Sudden onset abdominal and back pain. ORAL CONTRAST: No oral contrast ingested. RADIATION DOSE: 6.91 CTDIvol (mGy) MEDICAL HISTORY : None SURGICAL HISTORY : None. ENCOUNTER: Initial ACUITY: 1 day PAIN SCALE: 7/10 LOCATION: [facility] TECHNIQUE: Volumetric scanning of the abdomen and pelvis was performed. Using automated exposure control and ad justment of the mA and/or kV according to patient size, radiation dose was kept as low as reasonably achievable to obtain optimal diagnostic quality images. DICOM format image data is available electro nically for review and comparison. FINDINGS: LIVER: Visualized portions are grossly unremarkable. SPLEEN: Visualized portions are grossly unremarkable. PANCREAS: Within normal limits. KIDNEYS: Tiny bilateral nonobstructing calculi are again noted. No definite evidence of ureteral stone or hydr onephrosis. ADRENAL GLANDS: Within normal limits. VASCULAR: There is no aortic aneurysm. BOWEL/MESENTERY: The stomach, small bowel, and colon demonstrate no acute abnormality. There is no free intraperitone al air or fluid. ABDOMINAL WALL: Within normal limits. RETROPERITONEUM: There is no lymphadenopathy. BLADDER: No wall thickening or mass. REPRODUCTIVE: Within normal limits. INGUINAL: There is no lymphadenopathy or hernia. MUSCULOSKELETAL: Within normal limits for patient age. CONCLUSION: Tiny nonobstructing kidney stones bilaterally. No new or acute findings. Eric Stack MD on November 14, 2017 at 4:38 Board Certified Radiologist. This report was verified electronically.
[2017-11-14 05:51] VITALS: BP 125/76; PULSE 72; RESP 16; O2SAT 97
== END 2017-11-14 06:50 | disposition home or self-care (01) ==
LOC: NEPE 02:18
DX: R10.9 Unspecified abdominal pain (principal); Z87.442 Personal history of urinary calculi; Z72.0 Tobacco use
CPT/HCPCS: 74176; 80053; 81001; 83690; 84703; 85007; 85027; 96374; 96375; 99284; J1885; J2270; J2405

== ENCOUNTER 2018-01-20 17:56 | Emergency (ER) | payer SELFPAY ==
[~2018-01-20] VITALS: Ht 167.6 cm; Wt 48.0 kg
[2018-01-20 18:06] VITALS: BP 105/57; PULSE 96; RESP 16; TEMP 98.4; O2SAT 100
[2018-01-20] MEDS ORDERED: SODIUM CHLORIDE 0.9% FLUSH 10 ML FLUSH IV FLUSH PRN (20:00)
--- NOTE | 2018-01-20 20:00 | PD ---
HPI Chief Complaint: Related Problem Time Seen by Provider: 19:45 Travel History International Travel<30 days: No Contact w/Intl Traveler<30days: No Traveled to known affect area: No History of Present Illness HPI Is a 22-year-old woman presents to the emergency department complaining of worried that she is . She has had persistent daily upper abdominal pain , worse at night, sometimes worse after certain foods, ongoing for months. She states she has been seen twice for this, with no clear explanation. Review of the records shows 2 CT scans are both unremarkable. States the pain is severe at times. She states that her last menstrual period was December 02. She had a test at home but told her she was . She also has been having a little bit of vaginal spotting. She otherwise had been feeling generally well and healthy. Denies any other new or worsening symptoms. History Past Medical History Medical History: Denies Significant Hx LMP: 12/02/17 : 3 Para: 3 Social History Alcohol Use: No Tobacco Use: Yes (3 cig/daily) Allergies-Medications (Allergen,Severity, Reaction): Coded Allergies: No Known Allergies (Verified Adverse Reaction, Unknown, 08/04/17) Reported Meds & Prescriptions Reported Meds & Active Scripts Active Magic Mouthwash Adult Liq (Multi-Ingredient Mouthwash/Gargle) 120 Ml Susp 10 Ml SWISH-SPIT Q2HR Each 5mL contains: Nystatin 200,000units, Diphenhydramine 4.25mg, Viscous Lidocaine 10mg, Awan syrup 0.8 mL Mapap Extra Strength (Acetaminophen) 500 Mg Tab 1,000 Mg PO Q4-6H PRN Ibuprofen 600 Mg Tab 600 Mg PO Q6H PRN Penicillin V Potassium 500 Mg Tab 500 Mg PO Q6H Robaxin (Methocarbamol) 750 Mg Tab 750 Mg PO QID Mobic (Meloxicam) 15 Mg Tab 15 Mg PO DAILY Review of Systems Except as stated in HPI: all other systems reviewed are Neg Physical Exam Narrative GENERAL: Well-appearing 19-year-old woman, no acute distress. SKIN: Focused skin assessment warm/dry. NECK: Trachea midline. No JVD. CARDIOVASCULAR: Warm and well-perfused. RESPIRATORY: Normal rate and effort. GASTROINTESTINAL: Abdomen soft, non-tender, nondistended. Hepatic and splenic margins not palpable. MUSCULOSKELETAL: No obvious deformities. No clubbing. No cyanosis. No edema. NEUROLOGICAL: Awake and alert. No obvious cranial nerve deficits. Motor grossly within normal limits. Normal speech. PSYCHIATRIC: Appropriate mood and affect; insight and judgment normal. PELVIC: Normal external female genitalia. Some mucoid discharge in the vaginal vault, fairly prominent amount, no tenderness. No palpable uterine enlargement or adnexal masses. Data Data Last Documented VS Vital Signs Date Time Temp Pulse Resp B/P (MAP) Pulse Ox O2 Delivery O2 Flow Rate FiO2 01/20/18 20:12 80 18 01/20/18 18:06 98.4 105/57 (73) 100 Orders Orders Complete Blood Count With Diff (01/20/18 19:58) Comprehensive Metabolic Panel (01/20/18 19:58) Lipase (01/20/18 19:58) Urinalysis - C+S If Indicated (01/20/18 19:58) Iv Access Insert/Monitor (01/20/18 19:58) Ecg Monitoring (01/20/18 19:58) Oximetry (01/20/18 19:58) Sodium Chloride 0.9% Flush (Ns Flush) (01/20/18 20:00) Ed Urine Pregnancytest Poc (01/20/18 19:58) Beta Hcg (Quant/Titer) (01/20/18 20:27) Gc And Chlamydia Pcr (01/20/18 20:46) Wet Prep Profile (01/20/18 20:46) Us Pelvis (Ques Preg/Ectopic) (01/20/18 ) Labs Laboratory Tests Test 01/20/18 20:10 01/20/18 20:50 White Blood Count 4.5 TH/MM3 Red Blood Count 3.74 MIL/MM3 Hemoglobin 11.7 GM/DL Hematocrit 35.5 % Mean Corpuscular Volume 94.8 FL Mean Corpuscular Hemoglobin 31.3 PG Mean Corpuscular Hemoglobin Concent 33.0 % Red Cell Distribution Width 15.5 % Platelet Count 228 TH/MM3 Mean Platelet Volume 7.6 FL Neutrophils (%) (Auto) 61.8 % Lymphocytes (%) (Auto) 29.2 % Monocytes (%) (Auto) 7.7 % Eosinophils (%) (Auto) 1.0 % Basophils (%) (Auto) 0.3 % Neutrophils # (Auto) 2.8 TH/MM3 Lymphocytes # (Auto) 1.3 TH/MM3 Monocytes # (Auto) 0.3 TH/MM3 Eosinophils # (Auto) 0.0 TH/MM3 Basophils # (Auto) 0.0 TH/MM3 CBC Comment DIFF FINAL Differential Comment Urine Color YELLOW Urine Turbidity CLOUDY Urine pH 7.0 Urine Specific [place] 1.019 Urine Protein NEG mg/dL Urine Glucose (UA) NEG mg/dL Urine Ketones NEG mg/dL Urine Occult Blood NEG Urine Nitrite NEG Urine Bilirubin NEG Urine Urobilinogen LESS THAN 2 mg/dL Urine Leukocyte Esterase NEG Urine Squamous Epithelial Cells 1 /hpf Urine Amorphous Sediment RARE Microscopic Urinalysis Comment CULT NOT INDICATED Blood Urea Nitrogen 13 MG/DL Creatinine 0.85 MG/DL Random Glucose 76 MG/DL Total Protein 7.8 GM/DL Albumin 3.8 GM/DL Calcium Level 8.8 MG/DL Alkaline Phosphatase 111 U/L Aspartate Amino Transf (AST/SGOT) 83 U/L Alanine Aminotransferase (ALT/SGPT) 118 U/L Total Bilirubin 0.1 MG/DL Sodium Level 137 MEQ/L Potassium Level 4.1 MEQ/L Chloride Level 103 MEQ/L Carbon Dioxide Level 27.0 MEQ/L Anion Gap 7 MEQ/L Estimat Glomerular Filtration Rate 100 ML/MIN Lipase 194 U/L Human Chorionic Gonadotropin, Quant 49933 MIU/ML Clue Cells (Wet Prep) NONE SEEN Vaginal Trichomonas (Wet Prep) NONE SEEN Vaginal Yeast (Wet Prep) NONE SEEN MDM Medical Decision Making Medical Screen Exam Complete: Yes Emergency Medical Condition: Yes Interpretation(s) LABS: CBC is unremarkable CMP is unremarkable, mild elevated AST and ALT Lipase normal HCG 44843 UA negative Wet prep negative Differential Diagnosis , gastritis, pancreatitis, renal lithiasis, threatened AB, ectopic, other Narrative Course Medical decision making 19-year-old woman, ongoing epigastric abdominal pain radiated back times months to maybe a year or 2, worse at night, likely related to gastritis or peptic ulcer disease. She is taking NSAIDs heavily, daily, this may be worsening her symptoms. Previous workups been unremarkable. Just states she is probably . Will check a test. She is we will do a pelvic exam, otherwise recommend outpatient follow-up. We will likely start on PPI, recommend avoid NSAIDs. Diagnosis Primary Impression: Intrauterine Patient Instructions: General Instructions Additional Instructions: Follow-up with an clinic business manager first available appointment. Return to the emergency department for any new or worsening symptoms. Med/Other Pt SpecificInfo: No Change to Meds Disposition: 01 DISCHARGE HOME Condition: Stable Philipp Broderick MD Jan 20, 2018 20:00
[2018-01-20 20:32] LABS: AUTOMATED NEUTROPHIL # 2.8 TH/MM3 (1.8-7.7); BASOPHIL % 0.3 % (0.0-2.0); HEMATOCRIT 35.5 % (35.0-46.0); HEMOGLOBIN 11.7 GM/DL (11.6-15.3); LYMPH % 29.2 % (9.0-44.0); LYMPHOCYTE # 1.3 TH/MM3 (1.0-4.8); MEAN CELL VOLUME 94.8 FL (80.0-100.0); MEAN CORPUSCULAR HEMOGLOBIN 31.3 PG (27.0-34.0); MEAN PLATELET VOLUME 7.6 FL (7.0-11.0); MONO % 7.7 % (0.0-8.0); MONOCYTE # 0.3 TH/MM3 (0-0.9); NEUT % 61.8 % (16.0-70.0); PLATELET COUNT 228 TH/MM3 (150-450); RED BLOOD COUNT 3.74 MIL/MM3 (4.00-5.30); RED CELL DISTRIBUTION WIDTH 15.5 % (11.6-17.2); WHITE BLOOD COUNT 4.5 TH/MM3 (4.0-11.0)
[2018-01-20 20:40] LABS: AMORPHOUS SEDIMENT, URINE RARE; BILIRUBIN, URINE NEG (NEG); BLOOD, URINE NEG (NEG); GLUCOSE,URINE NEG (NEG); KETONE, URINE NEG (NEG); NITRITE,URINE NEG (NEG); SQUAMOUS EPITHELIAL CELL URINE 1 /hpf (0-5); URINE COLOR YELLOW (YELLW/STRAW); URINE LEUKOCYTE ESTERASE NEG (NEG)
[2018-01-20 20:54] LABS: ALBUMIN 3.8 GM/DL (3.4-5.0); AST (GOT) 83 U/L (15-37); BLOOD UREA NITROGEN 13 MG/DL (7-18); CALCIUM 8.8 MG/DL (8.5-10.1); CHLORIDE 103 MEQ/L (98-107); CREATININE 0.85 MG/DL (0.50-1.00); GLOMERULAR FILTRATION RATE 100 ML/MIN (>89); GLUCOSE,RANDOM 76 MG/DL (74-106); SODIUM (NA) 137 MEQ/L (136-145)
[2018-01-20 20:55] LABS: ALT (GPT) 118 U/L (10-53)
[2018-01-20 20:56] LABS: ALKALINE PHOSPHATASE 111 U/L (45-117); TOTAL BILIRUBIN ADULT 0.1 MG/DL (0.2-1.0); TOTAL PROTEIN 7.8 GM/DL (6.4-8.2)
--- NOTE | 2018-01-20 22:16 | RADRPT ---
EXAM DATE: 01/20/2018 10:10 PM EDT AGE/SEX: 22 years / Female INDICATIONS: Bleeding. CLINICAL DATA: This is the patient's initial encounter. Patient reports that signs and symptoms have been present for 2 days and indicates a pain score of 0/10. MEDICAL/SURGICAL HISTORY: . Renal calculi. . Renal stent and removal due to kidney st ones. COMPARISON: No prior exams available for comparison. MEASUREMENTS: Uterus:__10.4 x 6.3 x 6.8 cm Endometrial Stripe:__17 mm Right Ovary:__ 3.8 x 1.7 x 1.6 cm Left Ovary:__ 2.6 x 1.7 x 1.9 cm FINDINGS: Uterus: The myometrium has homogeneous echotexture without mass. Endometrial Stripe: There is an intrauterine gestational sac with yolk sac and pole correspond ing to 6 weeks 2 days gestational age. cardiac activity is present at 137 BPM. Right Ovary: Ovary contains no mass or significant cystic lesion. Left Ovary: Ovary contains no mass or significant cystic lesion. Fluid: No free fluid. Other: CONCLUSION: 1. Single intrauterine gestation corresponding to 6 weeks 2 days. 2. cardiac activity at 137 BPM. Electronically signed by: Adebayo Liao MD 01/20/2018 10:15 PM EDT
== END 2018-01-20 23:06 | disposition home or self-care (01) ==
LOC: NEPD 17:56
DX: O26.891 Other specified pregnancy related conditions, first trimester (principal); R10.13 Epigastric pain; O99.331 Smoking (tobacco) complicating pregnancy, first trimester; F17.210 Nicotine dependence, cigarettes, uncomplicated; Z79.899 Other long term (current) drug therapy; Z34.91 Encounter for supervision of normal pregnancy, unspecified, first trimester
CPT/HCPCS: 76700; 80053; 81001; 83690; 84702; 84703; 85025; 87210; 87491; 87591; 99284

== ENCOUNTER 2018-01-22 03:26 | Emergency (ER) | payer SELFPAY ==
[~2018-01-22] VITALS: Ht 167.6 cm; Wt 54.5 kg
[2018-01-22 03:28] VITALS: BP 118/55; PULSE 90; RESP 16; TEMP 98.9; O2SAT 90
--- NOTE | 2018-01-22 04:29 | PD ---
HPI Chief Complaint: Abdominal Pain Time Seen by Provider: 04:15 Travel History International Travel<30 days: No Contact w/Intl Traveler<30days: No Traveled to known affect area: No History of Present Illness HPI Patient comes in complaining of generalized abdominal discomfort over the past 2 days, states the pain intensity 5 out of 10. Denies any vaginal spotting or bleeding however she has had some frequency/dysuria. States she was told that she was 2 days ago. This is her fourth . 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 Patient denies any alleviating or aggravating factors. Patient denies any associated factors such as fever, rash, vaginal bleeding, nausea, vomiting, diarrhea, flank pain, vaginal discharge, hematuria negative No nondrug allergies Past medical history significant for kidney stones status post stent removal, , PFSH Past Medical History Diminished Hearing: No Kidney Stones: Yes Immunizations Current: Yes ?: : 3 Para: 3 Past Surgical History Section: No Genitourinary Surgery: Yes (STENT AND THEN REMOVAL; R/T KIDNEY STONES) Social History Alcohol Use: No Tobacco Use: No Substance Use: Yes (hx [facility]) Allergies-Medications (Allergen,Severity, Reaction): Coded Allergies: No Known Allergies (Verified Adverse Reaction, Unknown, 08/04/17) Reported Meds & Prescriptions Reported Meds & Active Scripts Active Magic Mouthwash Adult Liq (Multi-Ingredient Mouthwash/Gargle) 120 Ml Susp 10 Ml SWISH-SPIT Q2HR Each 5mL contains: Nystatin 200,000units, Diphenhydramine 4.25mg, Viscous Lidocaine 10mg, Awan syrup 0.8 mL Mapap Extra Strength (Acetaminophen) 500 Mg Tab 1,000 Mg PO Q4-6H PRN Ibuprofen 600 Mg Tab 600 Mg PO Q6H PRN Penicillin V Potassium 500 Mg Tab 500 Mg PO Q6H Robaxin (Methocarbamol) 750 Mg Tab 750 Mg PO QID Mobic (Meloxicam) 15 Mg Tab 15 Mg PO DAILY Review of Systems General / Constitutional: No: Fever Eyes: No: Visual changes HENT: No: Headaches Cardiovascular: No: Chest Pain or Discomfort Respiratory: No: Shortness of Breath Gastrointestinal: Positive: Abdominal Pain Genitourinary: No: Dysuria Musculoskeletal: No: Pain Skin: No Rash Neurologic: No: Weakness Psychiatric: No: Depression Endocrine: No: Polydipsia Hematologic/Lymphatic: No: Easy Bruising Physical Exam Narrative GENERAL: SKIN: Warm and dry. HEAD: Atraumatic. Normocephalic. EYES: Pupils equal and round. No scleral icterus. No injection or drainage. ENT: No nasal bleeding or discharge. Mucous membranes pink and moist. NECK: Trachea midline. No JVD. CARDIOVASCULAR: Regular rate and rhythm. RESPIRATORY: No accessory muscle use. Clear to auscultation. Breath sounds equal bilaterally. GASTROINTESTINAL: Abdomen soft, non-tender, nondistended. MUSCULOSKELETAL: Extremities without clubbing, cyanosis, or edema. No obvious deformities. NEUROLOGICAL: Awake and alert. No obvious cranial nerve deficits. Motor grossly within normal limits. Five out of 5 muscle strength in the arms and legs. Normal speech. PSYCHIATRIC: Appropriate mood and affect; insight and judgment normal. Data Data Last Documented VS Vital Signs Date Time Temp Pulse Resp B/P (MAP) Pulse Ox O2 Delivery O2 Flow Rate FiO2 01/22/18 03:28 98.9 90 16 118/55 (76) 90 Orders Orders Nitrofurantoin Monohyd Macrocr (Macrobid (01/22/18 04:30) Acetamin-Codeine 300-30 Mg (Tylenol-Code (01/22/18 04:30) MDM Medical Decision Making Medical Screen Exam Complete: Yes Emergency Medical Condition: Yes Medical Record Reviewed: Yes Differential Diagnosis UTI versus ectopic versus early versus threatened AB Narrative Course Ultrasound shows a single IUP 6 weeks and 2 days with cardiac activity at 137 bpm performed on January 20, 2018 January 20 GC and Chlamydia negative January 20, 2018 clue cells negative trichomonas negative yeast negative UA showed some turbidity but did not show any evidence of major UTI, however some sterile pyuria is present with this urinalysis Electrolytes are all within normal limits, normal pancreatic enzymes. HCG quantitative is 21,406. AST and ALT is slightly elevated at 83, 118 with normal alkaline phosphatase and normal bilirubin CBC shows no leukocytosis, no anemia, normal platelet count No additional testing is required for this patient after thorough workup that she had on January 20, 2018 Diagnosis Primary Impression: Sterile pyuria Referrals: [facility] Patient Instructions: General Instructions, Urinary Tract Infection in Women ( [place]) Scripts Phenazopyridine (Pyridium) 100 Mg Tab 100 MG PO Q8H Y for DYSURIA, #10 TAB 0 Refills Prov: Light[place],Rafi Abe MD 01/22/18 Nitrofurantoin Monohydrate Macrocrystals (Macrobid) 100 Mg Capsule 100 MG PO BID for Infection for 7 Days, #14 CAP 0 Refills Prov: Rafi Malik MD 01/22/18 Disposition: 01 DISCHARGE HOME Condition: Stable Rafi Malik MD Jan 22, 2018 04:29
[2018-01-22] MEDS ORDERED: ACETAMINOPHEN/CODEINE 300 MG/30 MG TAB PO ONE (04:30)
[2018-01-22] MEDS ORDERED: NITROFURANTOIN MONOHYD MACROCR 100 MG CAP PO ONE (04:30)
[2018-01-22] MEDS ORDERED: MACR100C2 PO (04:33)
[2018-01-22] MEDS ORDERED: PHEN0.4T PO (04:33)
== END 2018-01-22 05:49 | disposition home or self-care (01) ==
LOC: NEPD 03:26 → NEPC 05:49
DX: O23.41 Unspecified infection of urinary tract in pregnancy, first trimester (principal); Z79.899 Other long term (current) drug therapy; Z87.442 Personal history of urinary calculi
CPT/HCPCS: 99283